=== PATIENT | male | born 1955 ===

== ENCOUNTER 2017-04-22 08:31 | Day surgery (SDC) | payer OTHER ==
[2017-04-22 09:10] VITALS: BMI 19.3
[2017-04-22] MEDS ORDERED: Belladonna-Phenobarbital PO STA (11:45)
--- NOTE | 2017-04-22 11:45 | CP.SDSHP ---
Same Day Surgery H & P - History Proposed Procedure: COLONSCOPY Pre-Op Diagnosis: SEE NOTES - Previous Medical/Surgical History Misc: Other Pain: 2.Mild Pain - Allergies Allergies: Allergies No Known Allergies Allergy (Verified 04/22/17 09:10) - Physical Exam General Appearance: N Vital Signs: Vital Signs 04/22/17 09:13 Temperature 98.4 F Pulse Rate 80 Respiratory 16 Rate Blood Pressure 104/42 L O2 Sat by Pulse 99 Oximetry Mental Status: Alert & Oriented x3 Neuro: WNL GI: WNL - {Optional Preform as Required} Breast: WNL Abdomen: Other Rectal: Other Integument: WNL : WNL Ortho: WNL ENT: WNL - Impression Pt. Evaluated Today:Candidate for Anesthesia & Procedure: Yes - Date & Time Time: 11:45 Short Stay Discharge - Short Stay Discharge Admitting Diagnosis/Reason for Visit: SCREENING Disposition: HOME/ ROUTINE
[2017-04-22] MEDS ORDERED: Propofol 10 mg/ml Inj (20 ML) ONE (11:46)
[2017-04-22 12:16] VITALS: TEMP 98
[2017-04-22 12:42] VITALS: O2SAT 100
[2017-04-22 15:41] VITALS: BP 115/68; PULSE 76; RESP 12
== END 2017-04-22 15:41 | disposition home or self-care (01) ==
LOC: C.ENDO 08:31
PROVIDERS: ATTEND Specialist
DX: K62.1 Rectal polyp (principal); K64.8 Other hemorrhoids
CPT/HCPCS: 45388; 88305; J2704

== ENCOUNTER 2017-04-28 11:01 | Emergency (ER) | payer OTHER ==
[2017-04-28 11:30] VITALS: BMI 21.1
[2017-04-28] MEDS ORDERED: Sodium Chloride 0.9% 1,000 ML IV ONE (11:37)
[2017-04-28 12:00] LABS: BASO # 0.1 K/uL (0.0-0.2); BASO % 1.2 % (0.0-2.0); EOS % 0.4 % (0.0-4.0); HEMOGLOBIN 13.9 g/dL (12.0-18.0); LYMPH # 1.1 K/uL (1.0-4.3); LYMPH % 20.7 % (20.0-40.0); MEAN CORPUSCULAR HEMOGLOBIN 29.1 pg (27.0-31.0); MEAN CORPUSCULAR HGB CONC 33.4 g/dL (33.0-37.0); MEAN PLATELET VOLUME 7.8 fL (7.2-11.7); MONO # 0.5 K/uL (0.0-0.8); MONO % 9.2 % (0.0-10.0); NEUT # 3.7 K/uL (1.8-7.0); NEUT % 68.5 % (50.0-75.0); NRBC % 0.1 % (0.0-2.0); RBC 4.78 Mil/uL (4.40-5.90); RED CELL DISTRIBUTION WIDTH 13.4 % (11.5-14.5); WHITE BLOOD COUNT 5.4 K/uL (4.8-10.8)
[2017-04-28 12:07] LABS: ALBUMIN 4.2 g/dL (3.5-5.0)
[2017-04-28 12:10] LABS: ALB/GLOB RATIO 1.5 (1.0-2.1); AST/SGOT 28 U/L (17-59); GFR AFRICAN-AMERICAN > 60; GFR NON-AFRICAN AMERICAN > 60
[2017-04-28 12:11] LABS: ALT/SGPT 40 U/L (21-72); BLOOD UREA NITROGEN 18 mg/dL (9-20)
--- NOTE | 2017-04-28 12:21 | RAD ---
HISTORY: fatigue COMPARISON: None available TECHNIQUE: Chest, one view. FINDINGS: LUNGS: Biapical pleural thickening. No focal consolidation. Please note that chest x-ray has limited sensitivity for the detection of pulmonary masses. PLEURA: No significant pleural effusion identified. No definite pneumothorax . CARDIOVASCULAR: The cardiomediastinal silhouette appears within normal limits of size. OSSEOUS STRUCTURES: Degenerative changes. VISUALIZED UPPER ABDOMEN: Unremarkable. OTHER FINDINGS: None. IMPRESSION: Biapical pleural thickening. No focal consolidation, significant pleural effusion, or definite pneumothorax identified.
--- NOTE | 2017-04-28 12:26 | C.PDOC ---
History Of Present Illness Patient is a 61 y/o male, s/p colonoscopy done 04/22/17, presents to the emergency department with complaints of episode of dark stool with bright red blood that happened one day after his colonoscopy. He notes feeling lightheaded after his colonoscopy and reports that he has only been eating soup. He reports that he was instructed on this diet. Patient states he would like to rest today, and go back to work tomorrow. Otherwise, denies any room-spinning dizziness, syncopal episode, n/v/d, abdominal pain, urinary symptoms, fever, chills, chest pain or shortness of breath. Time Seen by Provider: 04/28/17 11:17 Chief Complaint (Nursing): Headache History Per: Patient History/Exam Limitations: no limitations Onset/Duration Of Symptoms: Days Current Symptoms Are (Timing): Still Present Preceeding Symptoms: None Associated Symptoms: denies: Photophobia, Blurred Vision, Nausea, Vomiting, Extremity Weakness Recent travel outside of the [place]: No Additional History Per: Patient Past Medical History Reviewed: Historical Data, Nursing Documentation, Vital Signs Vital Signs: Last Vital Signs Temp 97.7 F 04/28/17 13:22 Pulse 78 04/28/17 13:22 Resp 18 04/28/17 13:22 BP 126/77 04/28/17 13:22 Pulse Ox 97 04/28/17 13:25 - Medical History PMH: Denies: Chronic Kidney Disease Family History: States: Unknown Family Hx - Social History Hx Alcohol Use: No Hx Substance Use: No - Immunization History Hx Tetanus Toxoid Vaccination: No Hx Influenza Vaccination: No Review Of Systems Except As Marked, All Systems Reviewed And Found Negative. Constitutional: Negative for: Fever, Chills Cardiovascular: Positive for: Light Headedness. Negative for: Chest Pain, Palpitations Respiratory: Negative for: Cough, Shortness of Breath Gastrointestinal: Positive for: Other (dark stool with bright red blood (now resolved)). Negative for: Nausea, Vomiting, Abdominal Pain, Diarrhea, Constipation, Hematemesis, Rectal Pain Genitourinary: Negative for: Dysuria, Frequency, Hematuria Neurological: Negative for: Weakness, Numbness, Headache, Dizziness Physical Exam - Physical Exam Appears: Well, Non-toxic, No Acute Distress Skin: Normal Color, Warm, Dry Head: Atraumatic, Normacephalic Eye(s): bilateral: Normal Inspection, PERRL, EOMI Neck: Normal ROM, Supple Chest: Symmetrical Cardiovascular: Rhythm Regular, No Murmur Respiratory: Normal Breath Sounds, No Rales, No Rhonchi, No Wheezing Gastrointestinal/Abdominal: Soft, No Tenderness, No Mass, No Distention, No Guarding, No Rebound Back: Normal Inspection Extremity: Normal ROM Neurological/Psych: Oriented x3, Normal Speech, Normal Cognition, Other (neuro intact) ED Course And Treatment - Laboratory Results Result Diagrams: 04/28/17 11:52 04/28/17 11:52 ECG: Interpreted By Me, Viewed By Me ECG Rhythm: Sinus Rhythm ECG Interpretation: No Acute Changes Interpretation Of ECG: Normal intervals. No ST wave changes. Rate From EC (bpm) O2 Sat by Pulse Oximetry: 97 (on RA) Pulse Ox Interpretation: Normal Medical Decision Making Medical Decision Making: Patient reports 1 episode of blood in stool with episode of lightheadedness. Neurologically intact with no chest pain or shortness of breath Blood work, EKG, CXR ordered and reviewed. Colonoscopy results reviewed: internal hemorrhoids and tubular adenoma 1:12PM Patient had EKG showing NSR at 77bpm with normal intervals and no st changes. Cxray negative. Labs grossly normal. 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 Patient reports that he feels better after fluids and will follow-up with PMD and GI. He was also instructed on the importance of following up with cardiology. Disposition - Disposition Disposition: HOME/ ROUTINE Disposition Time: 13:13 Condition: GOOD Additional Instructions: Follow up with PMD within 2 days. Follow-up with your GI doctor. Return to ED if condition worsens. Forms: Work Excuse - Clinical Impression Clinical Impression: Lightheaded - Scribe Statement The provider has reviewed the documentation as recorded by the Marissaibe Denita Murray All medical record entries made by the Marissaibe were at my direction and personally dictated by me. I have reviewed the chart and agree that the record accurately reflects my personal performance of the history, physical exam, medical decision making, and the department course for this patient. I have also personally directed, reviewed, and agree with the discharge instructions and disposition.
[2017-04-28 13:22] VITALS: BP 126/77; PULSE 78; RESP 18; TEMP 97.7
[2017-04-28 13:26] VITALS: O2SAT 97
--- NOTE | 2017-04-29 12:56 | CARD ---
APPROVED REPORT EKG Measurement Heart [id number] <Conclusion> Normal sinus rhythm Normal ECG
== END 2017-04-28 13:25 | disposition home or self-care (01) ==
LOC: C.ER 11:01
DX: R42 Dizziness and giddiness (principal)
CPT/HCPCS: 71010; 80053; 82550; 82553; 83735; 84100; 84484; 85025; 93005; 96360; 99284; J7040

== ENCOUNTER 2018-05-26 08:31 | Day surgery (SDC) | payer OTHER ==
[2018-05-26] MEDS ORDERED: Propofol 10 mg/ml Inj (20 ML) ONE (11:54)
[2018-05-26] MEDS ORDERED: Lidocaine Hydrochloride 5 ML INJ ONE (11:54)
[2018-05-26] MEDS ORDERED: Belladonna-Phenobarbital PO STA (11:59)
--- NOTE | 2018-05-26 11:59 | CP.SDSHP ---
Same Day Surgery H & P - History Proposed Procedure: COLONSCOPY Pre-Op Diagnosis: SEE NOTES - Previous Medical/Surgical History Misc: Other Pain: 2.Mild Pain - Allergies Allergies: Allergies No Known Allergies Allergy (Verified 04/28/17 11:33) - Physical Exam General Appearance: N Vital Signs: Vital Signs 05/26/18 08:57 Temperature 98 F Pulse Rate 74 Respiratory 19 Rate Blood Pressure 139/49 L O2 Sat by Pulse 100 Oximetry Neuro: WNL Heart: WNL Lungs: WNL GI: Other - {Optional Preform as Required} Breast: WNL Abdomen: Other Rectal: Other Integument: WNL : WNL Ortho: WNL ENT: WNL - Impression Pt. Evaluated Today:Candidate for Anesthesia & Procedure: Yes - Date & Time Time: 11:59 Short Stay Discharge - Short Stay Discharge Admitting Diagnosis/Reason for Visit: PERSONAL HISTORY OF COLONIC POLYPS Disposition: HOME/ ROUTINE
[2018-05-26] MEDS ORDERED: Lactated Ringer's 1,000 ML IV ONE (12:00)
[2018-05-26 12:46] VITALS: TEMP 97.8; O2SAT 98
[2018-05-26 13:05] VITALS: BP 106/78; PULSE 70; RESP 14
== END 2018-05-26 11:06 | disposition home or self-care (01) ==
LOC: C.ENDO 08:31
PROVIDERS: ATTEND Specialist
DX: K52.9 Noninfective gastroenteritis and colitis, unspecified (principal); Z86.010 Personal history of colon polyps
CPT/HCPCS: 45380; 88305; J2704; J7120